=== PATIENT | female | born 1970 | race Caucasian/White ===

== ENCOUNTER → 2017-08-13 | Outpatient (CLI) | payer BC, SELFPAY | PROVIDERS: Visit Provider Physician Assistant | DX: Z98.84 Bariatric surgery status (principal); E03.9 Hypothyroidism, unspecified; I10 Essential (primary) hypertension | CPT/HCPCS: 36415; 80053; 80061; 80323; 82306; 82728; 82746; 83036; 83540; 83735; 83921; 83970; 84100; 84134; 84425; 84443; 84590; 85025; G0480 ==

== ENCOUNTER → 2017-11-29 07:50 | Outpatient (CLI) | payer BC, SELFPAY ==
--- NOTE | 2017-11-29 08:00 | US_ITS ---
US liver HISTORY: ITS.REASON: ATTN PORTAL VEIN, PORTAL VEIN THROMBOSIS ORDERING PHYSICIAN: Je Pedersen MD PATIENT AGE: 47 years COMPARISON: 06/30/2017 FINDINGS: PANCREAS:Unremarkable. No obvious mass or abnormal fluid collection. No ductal dilatation LIVER:Alondra turbulent flow within the portal vein as before and may be related to collateral vessels and/or recanalization of the portal vein. Is not significant change. Multiple septated hepatic cyst are once again noted measuring up to 3 cm in the right hepatic lobe. Previously noted 6 cm cyst in the mid aspect of the liver now measures approximately 3.7 cm. RIGHT KIDNEY:Unremarkable. Normal size and echogenicity. No hydronephrosis GALLBLADDER:Prior cholecystectomy. No ductal dilatation IMPRESSION: 1. Overall no change in the turbulent blood flow of the portal vein which may be due to recanalization. 2. Multiple hepatic cysts one of which is slightly smaller compared to the previous exam
[2017-11-29 09:21] LABS: Basophils % 0.7 % (0.1-2.0); Eosinophils # 0.1 K/mm3 (0.0-0.4); Eosinophils % 2.8 % (0.1-12.0); Hemoglobin 11.7 g/dL (12.2-16.2); Lymphocytes # 1.4 K/mm3 (0.7-4.5); Lymphocytes % 31.5 K/mm3 (10-50); Mean Corpuscular HGB Conc 30.9 g/dL (31.8-35.4); Mean Corpuscular Hemoglobin 25.3 pg (27.0-31.2); Mean Platelet Volume 10.1 fl (7.4-10.4); Monocytes # 0.3 K/mm3 (0.1-1.0); Monocytes % 6.3 % (1.7-9.3); Neutrophils # 2.6 K/mm3 (1.8-7.8); Neutrophils % 58.6 % (37.0-80.0); Platelet Count 176 K/mm3 (142-424); Red Blood Count 4.64 M/mm3 (4.20-5.40); Red Cell Distribution Width 14.4 % (11.5-17.5); White Blood Count 4.4 K/mm3 (4.8-10.8)
[2017-11-29 09:25] LABS: Hemoglobin A1C 5.4 % (0.0-7.0)
[2017-11-29 09:56] LABS: Alanine Aminotransferase 30 U/L (12-78); Albumin Level 3.8 gm/dL (3.4-5.0); Alkaline Phosphatase 214 U/L (46-116); Anion Gap 13.5 mEq/L (5-15); Aspartate Amino Transferase 28 U/L (15-37); Bilirubin,Total 0.5 mg/dL (0.2-1.0); Blood Urea Nitrogen 15 mg/dL (7-18); Calcium 8.9 mg/dL (8.5-10.1); Carbon Dioxide 28 mmol/L (21.0-32.0); Chloride 107 mmol/L (98-107); Chol/HDL Ratio 2.7 (1-3.5); Cholesterol 161 mg/dL (140-200); Creatinine,Serum 0.74 mg/dL (0.55-1.02); Estimated Glomerular Filt Rate 84 ml/min (>60); Ferritin 13 ng/mL (8-388); GFR (African American) 102 ML/MIN (>60); Glucose 91 mg/dL (74-106); HDL Cholesterol 59 mg/dL (29-89); Iron 32 ug/dl (28-170); LDL Cholesterol 84 mg/dL (0-130); Phosphorous 3.6 mg/dL (2.4-4.9); Potassium 3.5 mmoL/L (3.5-5.1); Sodium 145 mmol/L (136-145); Thyroid Stimulating Hormone 0.01 uIU/ml (0.358-3.740); Total Protein,Serum 7.8 gm/dL (6.4-8.2); Triglycerides 90 mg/dL (30-200); VLDL Cholesterol 18 mg/dL (0-40)
[2017-11-30 15:06] LABS: Vitamin D 25 Hydroxy 43.3 ng/mL (30.0-100.0)
[2017-12-13 13:36] LABS: Vitamin E Alpha Tocopherol 10.1 mg/L (7.0-25.1)
[2017-12-14 06:01] LABS: Vitamin A 29.2 ug/dL (33.1-100.0)
[2018-03-28 09:50] LABS: Folate 11.5 ng/mL (>3.0); Prealbumin 16 mg/dL (12-34); Vitamin B1 81.8 nmol/L (66.5-200.0)
[2018-03-28 09:51] LABS: Methylmalonic Acid 247 nmol/L (0-378)
== END ==
PROVIDERS: Family Provider Internal Medicine; PCP Internal Medicine; Visit Provider Internal Medicine Medical Oncology
DX: I81 Portal vein thrombosis (principal)
CPT/HCPCS: 36415; 76705; 80053; 80061; 82131; 82652; 82728; 82746; 83036; 83540; 84100; 84134; 84425; 84443; 84446; 84590; 85025

== ENCOUNTER → 2018-04-06 07:57 | Outpatient (CLI) | payer BC, SELFPAY ==
[2018-04-06 08:17] LABS: Eosinophils # 0.1 K/mm3 (0.0-0.4); Eosinophils % 3.2 % (0.1-12.0); Hematocrit 39.3 % (37.0-47.0); Hemoglobin 12.3 g/dL (12.2-16.2); Lymphocytes # 1.6 K/mm3 (0.7-4.5); Lymphocytes % 40.7 K/mm3 (10-50); Mean Corpuscular HGB Conc 31.3 g/dL (31.8-35.4); Mean Corpuscular Hemoglobin 24.7 pg (27.0-31.2); Mean Corpuscular Volume 78.8 fl (81-99); Mean Platelet Volume 10.1 fl (7.4-10.4); Monocytes # 0.2 K/mm3 (0.1-1.0); Monocytes % 5.9 % (1.7-9.3); Neutrophils % 49.2 % (37.0-80.0); Platelet Count 156 K/mm3 (142-424); Red Blood Count 4.98 M/mm3 (4.20-5.40); Red Cell Distribution Width 20.1 % (11.5-17.5)
[2018-04-06 09:14] LABS: Ferritin 26 ng/mL (8-388)
[2018-04-07 08:29] LABS: Iron 46 ug/dL (27-159); Iron Saturation 14 % (15-55); UIBC 280 ug/dL (131-425)
[2018-04-12 08:29] LABS: Methylmalonic Acid 479 nmol/L (0-378)
== END ==
PROVIDERS: Visit Provider Internal Medicine Medical Oncology
DX: I81 Portal vein thrombosis (principal); Z15.89 Genetic susceptibility to other disease; L57.8 Other skin changes due to chronic exposure to nonionizing radiation
CPT/HCPCS: 36415; 82131; 82728; 83540; 83550; 85025

== ENCOUNTER → 2018-05-23 07:51 | Outpatient (CLI) | payer BC, SELFPAY ==
--- NOTE | 2018-05-23 08:00 | US_ITS ---
US abdomen complete HISTORY: Follow-up portal hypertension, portal vein thrombosis ITS.REASON: PORTAL VEIN THROMBOSIS ORDERING PHYSICIAN: Je Pedersen MD PATIENT AGE: 47 years COMPARISON: None FINDINGS: PANCREAS:Unremarkable. No obvious mass or abnormal fluid collection. No ductal dilatation LIVER:There is a 19 x 18 mm complex cystic area in the right hepatic lobe not significant changed. In addition there is a 3.4 x 2.3 cm cyst in the right hepatic lobe and an additional complex 3 cm cyst in the right hepatic lobe. There is turbulent flow in the region of the portal vein which may be due to either recanalization of the portal vein versus collateral's similar compared to the previous exam... Common bile duct measures 5.5 mm. RIGHT KIDNEY:Unremarkable. Normal size and echogenicity. No hydronephrosis LEFT KIDNEY:Mild cortical scarring of the left kidney. No hydronephrosis GALLBLADDER: Prior cholecystectomy AORTA:No evidence of aneurysmal dilatation. SPLEEN:Borderline splenomegaly at 13 cm ASCITES:None demonstrated. IMPRESSION: 1. Turbulent flow within the portal region consistent with either recanalized portal vein or collaterals within the portal area. 2. No change in the cystic lesions of the right hepatic lobe
== END ==
PROVIDERS: Family Provider Internal Medicine; PCP Internal Medicine; Visit Provider Internal Medicine Medical Oncology
DX: I81 Portal vein thrombosis (principal)
CPT/HCPCS: 76700

== ENCOUNTER → 2018-06-21 08:24 | Outpatient (CLI) | payer BC, SELFPAY ==
--- NOTE | 2018-06-21 08:26 | MM_ITS ---
MM Dig screening mamm BI w/CAD ORDERING PHYSICIAN : Adam Sanders PATIENT AGE: 48 years GENDER: Female COMPARISON: Right breast February 2015, December 2014, INDICATION: ITS.REASON: SCREENING 48-year-old. No hormones. No new complaints. Previous needle biopsy right breast.. noncontributory family history TECHNIQUE: Standard CC and MLO images were obtained. R2 CAD reviewed. FINDINGS: Mild to moderate residual fibroglandular elements Today's air-contrast images extension weight previous fibroglandular elements RIGHT BREAST:I suspect right breast is stable but when the patient returns a would suggest including a spot CC and possibly rolled cc view of the area labeled A at the lateral retroareolar region,. I believe the area labeled Labeled B at the deep margin of the film was seen on previous studies but it should be included with a cc spot view is well. .. Metallic marker from the percutaneous biopsy noted LEFT BREAST:Superior left breast. Small area of density seen on MLO view is most likely a summation shadow. It labeled X this seems to dissipate on cc view. The area labeled Y at the inferior retroareolar region I believe is a stable feature accentuated by today's technique. However given these features are would suggest spot view of X and Y in the MLO projection. These areas are not clearly seen on the cc view but suggest cc spot view in the medial & lateral breast suggested to include areas noted on the film. IMPRESSION: There are areas bilaterally which I believe are minimally summation shadows but wouldbenefit from additional spot views to further evaluate. I believe Today's technique including higher contrast technique accentuates breast pattern & densities both breasts. BI-RADS Category: 0 Need Additional Imaging Evaluation RECOMMENDED FOLLOW-UP: IMM - IMMEDIATE FOLLOW-UP RECOMMENDED (A letter has been sent to the patient regarding results of the study.)
== END ==
PROVIDERS: PCP Internal Medicine; Visit Provider Internal Medicine
DX: Z12.31 Encounter for screening mammogram for malignant neoplasm of breast (principal)
CPT/HCPCS: 77067

== ENCOUNTER → 2018-07-21 12:48 | Outpatient (CLI) | payer BC, SELFPAY ==
--- NOTE | 2018-07-21 12:52 | MM_ITS ---
MM Dig mamm BI DX w/CAD INDICATION: Follow-up abnormal mammogram ORDERING PHYSICIAN: Adam Sanders PATIENT AGE: 48 years COMPARISON: 06/21/2018 TECHNIQUE: Spot compression views performed of both breasts along with straight ML views. FINDINGS: Right breast: There are scattered asymmetric densities some of which do appear to compress out. The density in the deep medial aspect of the right breast which was labeled B does appear to compress out. There is a 3 mm nodular density medial aspect right breast centrally. Asymmetric density present in the lateral right breast anteriorly (best A once again noted but may be due to overlapping fibroglandular tissue. There was a macro lobular area of asymmetric density in the inferior right breast on the MLO view spot view which are least partially compresses out. Ultrasound of the right breast is recommended. Left breast: There remains some moderate symmetry in the retroareolar region centrally and medially. Probably related to overlapping fibroglandular tissue. Ultrasound suggested. Bilateral breast ultrasound suggested but cannot be performed on the same day as the mammogram. IMPRESSION: Incomplete, additional images recommended. Recommend bilateral breast ultrasound BI-RADS Category: 0 Need Additional Imaging Evaluation RECOMMENDED FOLLOW-UP: IMM - IMMEDIATE FOLLOW-UP RECOMMENDED (A letter has been sent to the patient regarding results of the study.)
== END ==
PROVIDERS: PCP Internal Medicine; Visit Provider Internal Medicine
DX: R92.8 Other abnormal and inconclusive findings on diagnostic imaging of breast (principal)
CPT/HCPCS: 77066

== ENCOUNTER → 2018-07-27 09:42 | Outpatient (CLI) | payer BC, SELFPAY ==
--- NOTE | 2018-07-27 09:47 | US_ITS ---
US breast LT complete INDICATION: Follow-up abnormal mammogram ORDERING PHYSICIAN: Adam Sanders PATIENT AGE: 48 years COMPARISON: 07/21/2018 TECHNIQUE: Left breast ultrasound complete with axilla FINDINGS: There is a 3 x 2 mm cyst at 9:00. There are few small nodes in the axilla. At 11:00 there is a 9 x 5 mm hyperechoic focus which may be due to a lipoma. Mild ductal ectasia noted in the retroareolar region. No suspicious sonographic masses evident IMPRESSION: Probably benign findings. No convincing evidence of malignancy. Recommend 6 month mammographic and sonographic follow-up BI-RADS Category: 3 Probably Benign Finding Short Term Follow-up RECOMMENDED FOLLOW-UP: 6M - 6 MONTH FOLLOW-UP (A letter has been sent to the patient regarding results of the study.)
--- NOTE | 2018-07-27 09:47 | US_ITS ---
US breast RT complete INDICATION: Follow-up abnormal mammogram ORDERING PHYSICIAN: Adam Sanders PATIENT AGE: 48 years COMPARISON: 07/21/2018 TECHNIQUE: Right breast ultrasound with axilla FINDINGS: 3 mm cyst is present at 3:00. There is some mild ductal dilatation in the 7:00 region and 9:00 region. Ductal dilatation is also noted in the retroareolar area. There was some increased density in the retroareolar region on the mammogram which did appear to somewhat compress out and had a probably benign appearance and may correspond to some ductal ectasia IMPRESSION: Probably benign findings. There are a few small right breast cysts as well as ductal ectasia which may correspond to the mammographic abnormality. Recommend 6 month mammographic and sonographic follow-up BI-RADS Category: 3 Probably Benign Finding Short Term Follow-up RECOMMENDED FOLLOW-UP: 6M - 6 MONTH FOLLOW-UP (A letter has been sent to the patient regarding results of the study.)
== END ==
PROVIDERS: PCP Internal Medicine; Visit Provider Internal Medicine
DX: R92.8 Other abnormal and inconclusive findings on diagnostic imaging of breast (principal)
CPT/HCPCS: 76641

== ENCOUNTER → 2019-08-02 10:40 | Outpatient (CLI) | payer BC, SELFPAY ==
[2019-08-02 10:45] LABS: Microscopic, Urine URINE MICROSCOPIC (MICROSCOPIC)
[2019-08-02 10:53] LABS: Basophils % 0.7 % (0.1-2.0); Eosinophils # 0.1 K/mm3 (0.0-0.4); Eosinophils % 2.4 % (0.1-12.0); Lymphocytes # 1.6 K/mm3 (0.7-4.5); Lymphocytes % 27.6 % (10-50); Mean Corpuscular HGB Conc 30.4 g/dL (31.8-35.4); Mean Corpuscular Hemoglobin 22.5 pg (27.0-31.2); Mean Corpuscular Volume 73.9 fl (81-99); Mean Platelet Volume 8.9 fl (7.4-10.4); Monocytes # 0.4 K/mm3 (0.1-1.0); Monocytes % 7.3 % (1.7-9.3); Neutrophils # 3.5 K/mm3 (1.8-7.8); Platelet Count 166 K/mm3 (142-424); Red Cell Distribution Width 15.2 % (11.5-17.5); White Blood Count 5.6 K/mm3 (4.8-10.8)
[2019-08-02 10:56] LABS: Appearance,Urine CLEAR (Clear); Bilirubin,Urine Negative (Negative); Blood, Urine Negative (Negative); Color,Urine YELLOW (Yellow); Glucose,Urine (UA) Negative (Negative); Ketones,Urine Negative (Negative); Leukocyte Esterase,Urine 1+ (Negative); Nitrate,Urine Negative (Negative); PH,Urine 6.5 (5.0-8.5); Protein,Urine Negative (Negative); Specific Gravity, Urine 1.025 (1.005-1.030)
[2019-08-02 11:06] LABS: Hemoglobin 9.4 g/dL (12.2-16.2); Red Blood Count 4.19 M/mm3 (4.20-5.40)
[2019-08-02 11:21] LABS: Amorphous Sediment,Urine 1+ /lpf; Hyaline Casts,Urine Occasional #/lpf (0)
--- NOTE | 2019-08-02 13:28 | CT_ITS ---
PROCEDURE: CT ABDOMEN PELVIS W CON CLINICAL INDICATION: RLQ PAIN Right lower quadrant pain with nausea and vomiting and fever COMPARISON: ABDPELW CT ABD PELVIS W/ CONTRAST from 05/17/2017 TECHNIQUE: IV Contrast: 75ML OPTIRAY 350 Oral Contrast 20 mL Gastroview Axial images obtained with sagittal and coronal reformats. All CT scans at the facility use one or more dose reduction, viz: automated exposure control, ma/kV adjustment per patient size (including targeted exams where dose is matched to indication, i.e. head), or iterative reconstruction technique. FINDINGS: LOWER THORAX: There is a stable 5 mm nodule in the right middle lobe. The ABDOMEN & PELVIS: There are multiple hypodense lesions of the liver the largest in the right hepatic lobe posteriorly at 4 cm 2 cm. An 8 mm hypodensity is present in the left hepatic lobe laterally. A multilocular the cystic lesion is present in the inferior aspect of the right hepatic lobe. This lesion measures 3.6 cm previously measuring 6.8 cm. Some of the lesions are new and some of the older lesions are no longer apparent. Has the patient had interval hepatic surgery. There has been an interval cholecystectomy. There are multiple collateral vessels/varices in the portal region and peripancreatic area. There has been prior gastric surgery. Borderline splenomegaly at 13 cm. The no evidence of appendicitis. There is moderate to severe thickening of the left aspect of the transverse colon. Just superior to this region there is a small row of nodular densities.. The area of thickening may be related to neoplasm and the nodular densities could represent local lymph nodes. The area of thickening could also be due to severe area of colitis. It is however somewhat more focal than what 1 would expect for colitis. Prior hysterectomy. No pelvic mass or abnormal fluid collection. There is diverticulosis of the sigmoid colon. IMPRESSION: 1. No evidence of appendicitis 2. Focal moderate to severe thickening of the transverse colon just proximal to the sigmoid flexure. This area is suspicious for neoplasm. Focal colitis is also considered. Nodular densities superior to the colon at this area are present measuring up to 14 mm and may represent local enlarged lymph nodes 3. Varying sized complex cystic lesions within the liver. Appears that the patient has had partial hepatectomy. Please correlate with clinical history. This could account for some difference in appearance of the lesions. 4. Prominent varices/collateral vessels in the Ashley portal and peripancreatic region. 5. Prior gastric surgery Dictated by: Horacio Sotelo MD 08/02/2019 14:33 Electronically signed by Horacio Sotelo MD in [place] 08/02/2019 14:33
== END ==
LOC: LAB 10:42 → RAD 10:53
PROVIDERS: PCP Internal Medicine; Visit Provider Internal Medicine
DX: R10.31 Right lower quadrant pain (principal)
CPT/HCPCS: 36415; 74177; 81001; 85025; 87086; Q9967

== ENCOUNTER → 2019-09-06 08:23 | Outpatient (CLI) | payer BC, SELFPAY ==
[2019-09-06 09:26] LABS: Basophils % 0.8 % (0.1-2.0); Eosinophils # 0.1 K/mm3 (0.0-0.4); Hematocrit 31.1 % (37.0-47.0); Lymphocytes # 1.3 K/mm3 (0.7-4.5); Lymphocytes % 26.6 % (10-50); Mean Corpuscular HGB Conc 28.8 g/dL (31.8-35.4); Mean Corpuscular Hemoglobin 20.5 pg (27.0-31.2); Mean Corpuscular Volume 71.2 fl (81-99); Mean Platelet Volume 8.9 fl (7.4-10.4); Monocytes # 0.3 K/mm3 (0.1-1.0); Monocytes % 5.9 % (1.7-9.3); Neutrophils # 3.3 K/mm3 (1.8-7.8); Neutrophils % 64.6 % (37.0-80.0); Platelet Count 152 K/mm3 (142-424); Red Blood Count 4.37 M/mm3 (4.20-5.40); Red Cell Distribution Width 16.3 % (11.5-17.5)
[2019-09-06 10:58] LABS: Anion Gap 11.8 mEq/L (5-15); Blood Urea Nitrogen 16 mg/dL (7-18); Calcium 8.3 mg/dL (8.5-10.1); Carbon Dioxide 28 mmol/L (21.0-32.0); Chloride 106 mmol/L (98-107); Creatinine,Serum 0.69 mg/dL (0.55-1.02); Estimated Glomerular Filt Rate 90 ml/min (>60); GFR (African American) 109 ML/MIN (>60); Glucose 79 mg/dL (74-106); Potassium 3.8 mmoL/L (3.5-5.1); Sodium 142 mmol/L (136-145)
== END ==
PROVIDERS: Visit Provider Surgery
DX: Z01.818 Encounter for other preprocedural examination (principal); C18.9 Malignant neoplasm of colon, unspecified
CPT/HCPCS: 36415; 80048; 85025; 86850

== ENCOUNTER 2019-09-08 06:04 | Inpatient (IN) ==
--- NOTE | 2019-09-08 07:09 | Progress Note ---
[facility] Anesthesia Checklist - Patient Identification Patient Identification: Arm Band, Verbal (Name & ) - Structural Data Admitted From: Home Planned Operative Procedure/s: colon resection Consent for Planned Operative Procedure(s) Verified: Yes Verified Documents: History and Physical - NPO Status Verified Time NPO: 00:00 - Chart Verification Results Verified: CBC, BMP - Additional verifications Patient : No Anesthesia Reactions: No Hx Blood Transfusions: No Blood Transfusion Reaction: No Cephalosporin Allergy: No Previous Colonoscopy: Yes - Cardiovascular Assessment Heart Sounds: S1 & S2 Pulse Strength: Baseline Pulse Rhythm: Regular Peripheral Edema: No - Airway Assessment C-Spine Mobility Assessed: Yes TMJ Mobility Assessed: Yes Dentition: Good Dentition - Neurological Assessment Level of Consciousness: Awake, Alert, Appropriate Hx Seizures: No Numbness or tingling in extremities: No - Anesthesia Plan Anesthesia Risk discussed: Yes Anesthesia Plan: Verified ASA Class: II Anesthesia Type: General [facility] History I have reviewed the patient's past medical history: Yes Medical History: Reports:: Cancer (colon/thyroid), Deep Vein Thrombosis, Hypertension, Migraine, Valvular Heart Disease Denies:: Diabetes Mellitus Type 1, Diabetes Mellitus Type 2, Internal Pacemaker, MRSA, Seizures *Have you ever received a pneumonia vaccine?: No *Have you received a flu vaccine this season?: Yes Other Medical History: Reports: Arthritis, Hypothyroidism, Sinus Problems. Denies: Blood Transfusion Reaction Anesthesia experience/problems:: none Laterality Cases: Right: Breast Biopsy, Bilateral: Tonsillectomy, Other Other Surgeries: Yes: Bariatric Surgery, Cancer Surgery, Cholecystectomy, C- section, EGD, Hysterectomy-Total, Skin Cancer Excision, Thyroidectomy, Other. No: Pacemaker Amputation: No Fractures: No - *Social History Educational Level: Completed College Smoking Status: Never smoker Alcohol Intake: never Substance Use Type: denies use *Occupational Status:: employed Housing: house Household Members: spouse, children *Travel in the last 8 weeks: None Family Hx:: Cancer, Diabetes, Heart Attack, Hypertension, Thyroid Disorder
--- NOTE | 2019-09-08 10:45 | Progress Note ---
[facility] Anesthesia Record Part I Intake, IV Amount: 1,500 Estimated blood loss (mL): 100 Urine output (mL): 60 Blood Products used (#): none Blood Pressure: 137/92 SaO2: 97 Pulse Rate: 101 Respiratory Rate: 20 Temperature: 97.6 F Patient is:: Drowsy, Stable Stable to PACU at:: 10:38
--- NOTE | 2019-09-08 10:51 | Operative Note ---
Date of procedure: 09/08/19 Pre-op Diagnosis:: Colon cancer Post-op Diagnosis:: Same Procedure performed:: Left colon resection with mobilization of splenic flexure and primary anastomosis Surgeon:: Dilan Canela MD Metal Patternmaker(s):: Chau Morocho MD BUSINESS ADMINISTRATOR:: Reginaldo Ramirezty Anesthesia: GETA Estimated blood loss (mL): 100 Clinical Note:: Patient presents for colon resection. She is a pleasant 49 year old. She underwent colonoscopy recently revealing distal transverse colon colon cancer. She is a history of about 1 year of several episodes of some bloody stools. She does have a history of prior gastric sleeve and had subsequent portal vein thrombosis and is on chronic Eliquis. She has had some change in bowel habits over the past several months as well in which she has several days of obstipation then has painful bowel movements secondary to constipation. She had some right lower quadrant pain. She underwent a CT scan of the abdomen and pelvis last month which revealed some findings of thickening of the distal transverse colon concerning for neoplasm versus focal colitis. She also had some possible enlarged lymph nodes as well as findings of prominent periportal and perigastric varices. She was sent for surgical consultation for colonoscopy. She underwent colonoscopy which revealed circumferential lesion grossly consistent with colon cancer. Colonoscope was ultimately able to be advanced beyond this and into the cecum. Biopsies were obtained which returned as consistent with adenocarcinoma. She had several other polyps removed most of which revealed merely hyperplastic polyps but she did have a tubular adenoma in the rectum. Operative findings:: She had a large circumferential lesion in the transverse colon. Operative note:: Patient was taken to the operating room. Please note that the day before the procedure she underwent a mechanical and antibiotic bowel preparation. She had been maintained on therapeutic low molecular weight heparin due to her history of portal vein thrombosis. In the operating room she was placed in a supine position. General anesthesia was induced via endotracheal tube. Lezama catheter was placed. Abdomen was prepped and draped in the standard surgical fashion. Upper midline skin incision was made and dissection was carried down through subcutaneous tissues and fascia using electrocautery. Peritoneum was entered carefully. Exposure was achieved. There was found to be a very large firm mass in the transverse colon. Colon was mobilized dividing the white line of Toldt in the left colon. Splenic flexure was mobilized by use of the Enseal device. Some more prominent tissue and vessels were clamped divided and ligated with ties. Colon was divided a generous distance proximal to the palpable tumor with a SHERIF-75 stapling device. In the descending colon colon was divided as well with a SHERIF 75 stapling device. Generous mesenteric resection was performed dividing the mesentery with the Enseal device with vessels clamped and ligated with 0 Surgilon ties. Large vessels were doubly ligated. Please note that the lesser omentum was divided with the Enseal device. Lymph: Was then passed off as a specimen. Upon inspection of the specimen it appeared as though the proximal margin was rather borderline distance. Therefore additional 5 or 6 cm of colon proximally was excised using a SHERIF-75 type stapling device. This allowed for easily greater than 10 cm proximal margin. A tension-free end-to-end 2 layer anastomosis was then performed running 3-0 Vicryl full- thickness suture with outer layer of interrupted 3 oh Surgilon seromuscular sutures. Anastomosis appeared patent and intact. The splenic flexure region was thoroughly inspected for hemostasis which appeared to be adequate. The mesenteric defect at the anastomosis was closed with a running 2-0 Vicryl suture. Enteric contents were returned to the normal anatomic fashion. Inspection of the liver was somewhat difficult due to her hepatic cysts and was difficult to discern if there are any small metastases but none obviously were noted. Peritoneal cavity was thoroughly irrigated and aspirated until clear. Enteric contents were returned to normal anatomic position. Fascia was closed with a running #2 Novafil x2. Subcutaneous tissues were irrigated. Skin was closed with skin herlinda. Clean dry sterile dressing was applied. Condition: stable Disposition: PACU Specimens:: Left colon Extended proximal margin Complications:: None immediately apparent
--- NOTE | 2019-09-08 11:51 | Progress Note ---
[facility] Anesthesia Record Part II Discharge Time: 11:18 Destination: Surgical Day Care (OP Surgery) PACU nurse assessment reviewed?: Yes Patient Condition:: Good Anesthesia Complications:: None Swallowing reflex intact?: Yes Cyanosis?: No Blood Pressure: 146/93 Pulse Rate: 98 Temperature: 97.9 F Mental Status: Alert & Oriented Pain level:: 1 Nausea and/or vomitting:: None Intake, IV Amount: 0
--- NOTE | 2019-09-08 15:34 | Pharmacy Consult Notes ---
[facility] Pharmacy VTE Monitoring - Patient Demographics Admission date: 09/08/19 Report Date: 09/08/19 Time: 15:34 Allergies/Adverse Reactions: Patient Allergies hydromorphone [From Dilaudid] Allergy (Unknown, Verified 09/08/19 06:22) Height: 1.8 m Weight: 83.659 kg - VTE Risk Was VTE Risk Assessment Performed: Yes VTE Score: 1 VTE Risk Level: Very Low Risk - Prophylaxis VTE Prophylaxis Ordered?: Yes Types of VTE Prophylaxis: Pharmacological Pharmacologic Type: Enoxaparin
[2019-09-09 06:20] LABS: Basophils % 0.2 % (0.1-2.0); Eosinophils # 0.1 K/mm3 (0.0-0.4); Eosinophils % 0.6 % (0.1-12.0); Lymphocytes % 11.7 % (10-50); Mean Corpuscular HGB Conc 28.3 g/dL (31.8-35.4); Mean Corpuscular Volume 71.6 fl (81-99); Mean Platelet Volume 8.6 fl (7.4-10.4); Monocytes # 0.5 K/mm3 (0.1-1.0); Monocytes % 5.2 % (1.7-9.3); Neutrophils # 7.1 K/mm3 (1.8-7.8); Neutrophils % 82.4 % (37.0-80.0); Platelet Count 143 K/mm3 (142-424); Red Blood Count 3.84 M/mm3 (4.20-5.40); Red Cell Distribution Width 16.6 % (11.5-17.5); White Blood Count 8.6 K/mm3 (4.8-10.8)
[2019-09-09 06:21] LABS: Hematocrit 27.5 % (37.0-47.0); Hemoglobin 7.8 g/dL (12.2-16.2)
[2019-09-09 06:49] LABS: Anion Gap 9.2 mEq/L (5-15); Calcium 7.7 mg/dL (8.5-10.1)
--- NOTE | 2019-09-09 08:57 | Progress Note ---
Subjective Narrative: Patient has had some appreciable abdominal pain overnight which required some alteration of the morphine AUDIT OFFICER dosing regimen. She denies any nausea. Hemoglobin this morning is 7.8. Baseline hemoglobin of 9.0. Exam Vital signs and Labs for Last 24 Hours: Temp Pulse Resp BP Pulse Ox 97.8 F 91 H 16 117/73 92 L 09/09/19 07:18 09/09/19 06:00 09/09/19 04:00 09/09/19 06:00 09/09/19 06:00 Laboratory Results - last 24 hr 09/08/19 07:30: Urine Color Yellow, Urine Appearance Clear, Urine pH 5.0, Ur Specific [place] >= 1.030, Urine Protein Negative, Urine Glucose (UA) Negative, Urine Ketones Trace, Urine Blood Negative, Urine Nitrate Positive, Urine Bilirubin Negative, Urine Urobilinogen 0.2, Ur Leukocyte Esterase Trace, Urine RBC None, Urine WBC 3-5, Ur Squamous Epith Cells 3-5, Urine Bacteria 1+ 09/09/19 05:35: WBC 8.6 D, RBC 3.84 L, Hgb 7.8 L*, Hct 27.5 L, MCV 71.6 L, MCH 20.3 L, MCHC 28.3 L, RDW 16.6, Plt Count 143, MPV 8.6, Neut % (Auto) 82.4 H, Lymph % (Auto) 11.7, Coleman % (Auto) 5.2, Eos % (Auto) 0.6, Baso % (Auto) 0.2, Neut # (Auto) 7.1, Lymph # (Auto) 1.0, Coleman # (Auto) 0.5, Eos # (Auto) 0.1, Baso # (Auto) 0.0 09/09/19 05:35: Sodium 140, Potassium 4.2, Chloride 106, Carbon Dioxide 29, Ani on Gap 9.2, BUN 11 D, Creatinine 0.69, Estimated Creat Clear 135, Estimated GFR 90, Est GFR ( Amer) 109, Glucose 105, Calcium 7.7 L I & O for Last 24 hours: Intake & Output 09/06/19 09/07/19 09/08/19 09/09/19 11:59 11:59 11:59 11:59 Intake Total 1500 / 1500 2846 / 2846 Output Total 825 / 825 Balance 1500 / 1500 2020 Weight 185 lb 184 lb 7 oz 190 lb 8 oz Narrative: She is in no acute distress. Appears more comfortable than yesterday evening. Abdominal incision is dressed. Progress Note: A&P Assessment and Plan for All Diagnoses:: Continue n.p.o. except ice chips. Patient may have chewing gum which is en couraged. May add low-dose Toradol briefly due to her abdominal pain. Monitor hemoglobin and hematocrit. Hopefully will not require transfusion.
[2019-09-10 05:57] LABS: Basophils % 0.5 % (0.1-2.0); Eosinophils # 0.2 K/mm3 (0.0-0.4); Eosinophils % 3.2 % (0.1-12.0); Lymphocytes # 0.7 K/mm3 (0.7-4.5); Lymphocytes % 13.8 % (10-50); Mean Corpuscular HGB Conc 28.3 g/dL (31.8-35.4); Mean Corpuscular Volume 71.5 fl (81-99); Mean Platelet Volume 10.5 fl (7.4-10.4); Monocytes # 0.3 K/mm3 (0.1-1.0); Monocytes % 5.8 % (1.7-9.3); Neutrophils # 4.1 K/mm3 (1.8-7.8); Neutrophils % 76.7 % (37.0-80.0); Platelet Count 100 K/mm3 (142-424); Red Blood Count 3.16 M/mm3 (4.20-5.40); Red Cell Distribution Width 16.6 % (11.5-17.5); White Blood Count 5.3 K/mm3 (4.8-10.8)
[2019-09-10 05:58] LABS: Hematocrit 22.6 % (37.0-47.0); Hemoglobin 6.4 g/dL (12.2-16.2)
[2019-09-10 06:20] LABS: Anion Gap 14.1 mEq/L (5-15)
--- NOTE | 2019-09-10 08:54 | Progress Note ---
Subjective Narrative: Patient without complaints other than headache. Started Tylenol. No nausea. Pain much improved. Hgb 6.4 this morning. Exam Vital signs and Labs for Last 24 Hours: Temp Pulse Resp BP Pulse Ox 99.0 F 69 15 102/58 L 98 09/10/19 08:15 09/10/19 08:15 09/10/19 08:15 09/10/19 08:15 09/10/19 08:15 Laboratory Results - last 24 hr 09/10/19 05:45: WBC 5.3 D, RBC 3.16 L, Hgb 6.4 L*, Hct 22.6 L*, MCV 71.5 L, MCH 20.2 L, MCHC 28.3 L, RDW 16.6, Plt Count 100 L D, MPV 10.5 H, Neut % (Auto) 76.7, Lymph % (Auto) 13.8, Valley % (Auto) 5.8, Eos % (Auto) 3.2, Baso % (Auto) 0.5, Neut # (Auto) 4.1, Lymph # (Auto) 0.7, Valley # (Auto) 0.3, Eos # (Auto) 0.2, Baso # (Auto) 0.0 09/10/19 05:45: Sodium 144, Potassium 4.1, Chloride 103, Carbon Dioxide 31, Anion Gap 14.1, BUN 11, Creatinine 0.52 L D, Estimated Creat Clear 180, Estimated GFR 125, Est GFR ( Amer) 152 D, Glucose 88, Calcium 7.0 L 09/10/19 05:45: Blood Type O Positive, Antibody Screen Negative, Crossmatch (AHG) See Detail I & O for Last 24 hours: Intake & Output 09/07/19 09/08/19 09/09/19 09/10/19 11:59 11:59 11:59 11:59 Intake Total 1500 / 1500 2846 / 2846 2816 / 2816 Output Total 1075 / 1075 250 / 250 Balance 1500 / 1500 1771 / 1771 2566 / 2566 Weight 185 lb 184 lb 7 oz 190 lb 8 oz 192 lb 5 oz Narrative: No acute distress. Abdomen soft. Dressing intact. Some bowel sounds. Progress Note: A&P Assessment and Plan for All Diagnoses:: Restarted home medications. Transfuse today. Monitor HH. May have some sips of clears.
[2019-09-10 15:42] LABS: Hemoglobin 8.1 g/dL (12.2-16.2)
[2019-09-11 06:17] LABS: Basophils % 0.4 % (0.1-2.0); Eosinophils # 0.2 K/mm3 (0.0-0.4); Eosinophils % 5.6 % (0.1-12.0); Hematocrit 26.7 % (37.0-47.0); Lymphocytes # 1.1 K/mm3 (0.7-4.5); Lymphocytes % 30.2 % (10-50); Mean Corpuscular HGB Conc 29.3 g/dL (31.8-35.4); Mean Corpuscular Volume 72.7 fl (81-99); Mean Platelet Volume 8.5 fl (7.4-10.4); Monocytes # 0.2 K/mm3 (0.1-1.0); Monocytes % 6.4 % (1.7-9.3); Neutrophils % 57.3 % (37.0-80.0); Platelet Count 123 K/mm3 (142-424); Red Blood Count 3.68 M/mm3 (4.20-5.40); White Blood Count 3.5 K/mm3 (4.8-10.8)
[2019-09-11 06:41] LABS: Hemoglobin 7.8 g/dL (12.2-16.2)
--- NOTE | 2019-09-11 08:11 | Progress Note ---
Subjective Patient reports: feels better Narrative: No nausea. Active bowel sounds. Pain improved. Appropriate response to transfusion with hgb 8.1, essentially stable at 7.8 this morning. Exam Vital signs and Labs for Last 24 Hours: Temp Pulse Resp BP Pulse Ox 98.0 F 57 L 17 126/72 92 L 09/11/19 06:00 09/11/19 06:00 09/11/19 06:00 09/11/19 06:00 09/11/19 06:00 Laboratory Results - last 24 hr 09/10/19 05:45: Blood Type O Positive, Antibody Screen Negative, Crossmatch (AHG) See Detail 09/10/19 15:30: Hgb 8.1 L D, Hct 27.0 L 09/11/19 05:19: WBC 3.5 L D, RBC 3.68 L, Hgb 7.8 L*, Hct 26.7 L, MCV 72.7 L, MCH 21.3 L, MCHC 29.3 L, RDW 17.0, Plt Count 123 L, MPV 8.5, Neut % (Auto) 57.3, Lymph % (Auto) 30.2, Bartholomew % (Auto) 6.4, Eos % (Auto) 5.6, Baso % (Auto) 0.4, Neut # (Auto) 2.0, Lymph # (Auto) 1.1, Bartholomew # (Auto) 0.2, Eos # (Auto) 0.2, Baso # (Auto) 0.0 I & O for Last 24 hours: Intake & Output 09/08/19 09/09/19 09/10/19 09/11/19 11:59 11:59 11:59 11:59 Intake Total 1500 / 1500 2846 / 2846 3066 / 3066 2415 / 2415 Output Total 1075 / 1075 250 / 250 3000 / 3000 Balance 1500 / 1500 1771 / 1771 2816 / 2816 -585 / -585 Weight 184 lb 7 oz 190 lb 8 oz 192 lb 5 oz 192 lb 4.983 oz - *Routine Abdominal Exam Present: soft Progress Note: A&P Assessment and Plan for All Diagnoses:: DC LEAD RELAY TESTER, start oral pain meds. Clear liquid diet. Nutrition and rehab consults DC Toradol Decrease IV fluids. Follow HH
--- NOTE | 2019-09-12 07:11 | Progress Note ---
Subjective Narrative: Patient is doing extremely well. She has minimal incisional pain at this time. She is tolerating clear liquids without difficulty and has had multiple bowel movements. Exam Vital signs and Labs for Last 24 Hours: Temp Pulse Resp BP Pulse Ox 97.9 F 66 16 129/77 97 09/12/19 04:00 09/12/19 04:00 09/12/19 04:00 09/12/19 04:00 09/12/19 04:00 I & O for Last 24 hours: Intake & Output 09/09/19 09/10/19 09/11/19 09/12/19 11:59 11:59 11:59 11:59 Intake Total 2846 / 2846 3066 / 3066 2415 / 2415 360 / 360 Output Total 1075 / 1075 250 / 250 3000 / 3000 250 / 250 Balance 1771 / 1771 2816 / 2816 -585 / -585 110 / 110 Weight 190 lb 8 oz 192 lb 5 oz 192 lb 4.983 oz 192 lb 4.983 oz Narrative: Her abdomen is soft and her incision is clean. Progress Note: A&P Assessment and Plan for All Diagnoses:: I will go ahead and advance her to full liquid diet. Remove IV. Possible discharge later today.
--- NOTE | 2019-09-12 12:57 | Discharge Summary ---
General - General Admission date:: 09/08/19 Discharge date: 09/12/19 HPI HPI: Patient was admitted for colon resection. She is a pleasant 49 year old. She underwent colonoscopy recently revealing distal transverse colon colon cancer. She is a history of about 1 year of several episodes of some bloody stools. She does have a history of prior gastric sleeve and had subsequent portal vein thrombosis and is on chronic Eliquis. She has had some change in bowel habits over the past several months as well in which she has several days of obstipation then has painful bowel movements secondary to constipation. She had some right lower quadrant pain. She underwent a CT scan of the abdomen and pelvis last month which revealed some findings of thickening of the distal transverse colon concerning for neoplasm versus focal colitis. She also had s ome possible enlarged lymph nodes as well as findings of prominent periportal and perigastric varices. She was sent for surgical consultation for colonoscopy. She underwent colonoscopy which revealed circumferential lesion grossly consistent with colon cancer. Colonoscope was ultimately able to be advanced beyond this and into the cecum. Biopsies were obtained which returned as consistent with adenocarcinoma. She had several other polyps removed most of which revealed merely hyperplastic polyps but she did have a tubular adenoma in the rectum. Hospital Course Hospital Course: Patient was admitted on 09/08/2019 at which time she was taken to the operating room. She underwent laparotomy with left colon resection and mobilization of splenic flexure with primary end-to-end anastomosis. Please see operative note for complete details. She was admitted to stepdown unit initially for postoperative care and recovery. She did have some significant abdominal discomfort and mild nausea the afternoon after surgery. She required some increase in the morphine [employer]SE [employer]OVER. She was given perioperative Invanz which was discontinued on postoperative day #1. She did not have nasogastric tube in place. She had Lezama catheter removed on postoperative day #1 normal is able to void without difficulty. Please note that her baseline hemoglobin was 9 and by postoperative day #2 it had diminished. She required transfusion of 2 units of packed red blood cells with good response and hemoglobin remained relatively stable following that. She was given some sips of clears on postoperative day #2 which she tolerated without difficulty. This was advanced to clear liquid diet on postoperative day #3 and she subsequently had multiple bowel movements. She was ambulating without difficulty and doing quite well. On the morning of postop day #4 her diet was advanced to full liquids which she tolerated without any difficulty and continued to have bowel movements. Arrangements were made for discharge home at this time with close follow-up in the office. Objective Vital signs: Temp Pulse Resp BP Pulse Ox 98.2 F 61 16 127/82 100 09/12/19 07:50 09/12/19 07:50 09/12/19 07:50 09/12/19 07:50 09/12/19 07:54 Discharge Plan - Patient Discharge Instructions ACTIVITY: No heavy lifting DIET: other Additional Instructions: [place] diet Patient Instructions: Colon Cancer, Colon Polyps, DI for Surgical Site Infection - Follow up Plan Follow up with: Dilan Canela MD [Staff Physician] - 09/15/19 Disposition: Home, Self-Group Home Medications: Home Medications Medication Instructions Recorded Confirmed Type apixaban 5 mg tablet 5 mg PO BID 08/27/17 09/08/19 History levothyroxine 175 mcg tablet 175 mcg PO DAILY 08/27/17 09/08/19 History paroxetine HCl 10 mg tablet 10 mg PO DAILY 03/16/19 09/08/19 History Enoxaparin Sodium [Lovenox 90 mg SQ BID 08/22/19 09/08/19 History 100mg/mL syringe] Hydrocod/Acet 5/325 mg [[place] 1 - 2 tab PO Q6HP PRN #21 tab 09/12/19 Rx 5/325mg tablet] Prescriptions/Medication Reconciliation: New Hydrocod/Acet 5/325 mg [[place] 5/325mg tablet] 1 - 2 tab PO Q6HP PRN #21 tab PRN Reason: Moderate Pain Continued levothyroxine 175 mcg tablet 175 mcg PO DAILY paroxetine HCl 10 mg tablet 10 mg PO DAILY apixaban 5 mg tablet 5 mg PO BID Enoxaparin Sodium [Lovenox 100mg/mL syringe] 90 mg SQ BID - Problem Reconciliation Problems Reviewed?: Yes
== END 2019-09-12 13:56 | disposition home or self-care (01) | DRG 330 ==
LOC: 2ND 06:04 → OR 06:04 → OBSVTOIN 06:19 → 2ND 11:23
PROVIDERS: ADMIT Surgery; ATTEND Surgery
CPT/HCPCS: 36415; 80048; 81001; 85014; 85018; 85025; 86850; 96374; 97161; J0131; J1335; J2405; P9016

== ENCOUNTER → 2020-06-03 11:44 | Outpatient (CLI) | payer BC, SELFPAY ==
[2020-06-03 14:48] LABS: Coronavirus 19 IgG Antibody Negative (Negative); Coronavirus 19 IgM Antibody Negative (Negative)
== END ==
PROVIDERS: Visit Provider Surgery
DX: Z01.89 Encounter for other specified special examinations (principal); Z12.11 Encounter for screening for malignant neoplasm of colon
CPT/HCPCS: 36415; 86328

== ENCOUNTER 2020-06-04 06:14 | Day surgery (SDC) | payer BC, SELFPAY ==
[2020-05-30 16:26] VITALS: BMI 29.5
[2020-06-04] VITALS (7 sets, daily range): BP systolic 96–141; BP diastolic 58–69; PULSE 53–65; RESP 16–18; TEMP 36.1–36.9; O2SAT 95–99
--- NOTE | 2020-06-04 06:57 | P.PN_ITS ---
[facility] Anesthesia Checklist - Patient Identification Patient Identification: Arm Band, Verbal (Name & ) - Structural Data Admitted From: Home Planned Operative Procedure/s: colonoscopy Consent for Planned Operative Procedure(s) Verified: Yes Verified Documents: History and Physical - NPO Status Verified Time NPO: 00:00 - Chart Verification Results Verified: CBC, BMP - Additional verifications Patient : No Anesthesia Reactions: No Hx Blood Transfusions: No Blood Transfusion Reaction: No Cephalosporin Allergy: No Previous Colonoscopy: Yes - Cardiovascular Assessment Heart Sounds: S1 & S2 Pulse Strength: Baseline Pulse Rhythm: Regular Peripheral Edema: No - Airway Assessment C-Spine Mobility Assessed: Yes TMJ Mobility Assessed: Yes Dentition: Good Dentition - Neurological Assessment Level of Consciousness: Awake, Alert Hx Seizures: No Numbness or tingling in extremities: No - Anesthesia Plan Anesthesia Risk discussed: Yes Anesthesia Plan: Verified ASA Class: II Anesthesia Type: MAC [facility] History I have reviewed the patient's past medical history: Yes Medical History: Reports:: Cancer (colon cancer), Deep Vein Thrombosis, Hypertension, Migraine, Valvular Heart Disease (MVP) Denies:: Diabetes Mellitus Type 1, Diabetes Mellitus Type 2, Internal Pacemaker, MRSA, Seizures *Have you ever received a pneumonia vaccine?: No *Have you received a flu vaccine this season?: Yes Other Medical History: Reports: Arthritis, Hypothyroidism, Sinus Problems. Denies: Blood Transfusion Reaction Anesthesia experience/problems:: none Laterality Cases: Right: Breast Biopsy, Bilateral: Tonsillectomy, Other Other Surgeries: Yes: Bariatric Surgery, Cancer Surgery, Cholecystectomy, Colonoscopy, Colon Resection, , EGD, Hysterectomy-Total, Skin Cancer Excision, Thyroidectomy, Other. No: Pacemaker Amputation: No Fractures: No - *Social History Smoking Status: Never smoker Alcohol Intake: never Substance Use Type: denies use *Occupational Status:: employed Housing: house Household Members: spouse *Travel in the last 8 weeks: None Family Hx:: Cancer, Diabetes, Heart Attack, Hypertension, Thyroid Disorder
--- NOTE | 2020-06-04 07:51 | P.PCN_ITS ---
- Procedure: Date: 06/04/20 Patient Date of :: 1970 Procedure Performed:: Total colonoscopy to terminal ileum with biopsies Indications:: Patient presents for colonoscopy. 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 She is undergoing chemotherapy regimen with Dr. Pedersen in [place]. She did have a right subclavian port placed by Dr. Marck Begum. She did undergo CT scan of the chest abdomen pelvis in [place]. There was noted to be an area of some thickening of the sigmoid colon. Therefore plan was made to expedite her colonoscopy. Performing Provider:: Dilan Canela MD Referring Provider:: MD Je Gallardo MD Sedation:: MAC sedation Procedure:: Patient was taken to endoscopy procedure room. She was positioned in lateral decubitus position. Adequate intravenous sedation was achieved with anesthesia titration of propofol. Digital examination was performed which was unremarkable. Variable stiffness Olympus colonoscope was inserted via the anus. It was advanced to the cecum without difficulty. Colonic preparation was good. Ileocecal valve and appendiceal orifice were clearly identified. Colonoscope was slowly withdrawn through the colon with careful surveillance. Anastomosis was encountered at approximately 50 to 55 cm from the anal verge. It was patent with only minimal narrowing. There is mild inflammation and biopsies were obtained using cold biopsy forceps. At the rectosigmoid region there is some minor mucosal irregularity and a couple of biopsies were obtained. This appeared to be inconsequential. Within the rectum there was a single hyperplastic appearing polyp which was removed with cold biopsy forceps. Retroflexion within the rectum revealed nonpathologic internal hemorrhoids. Colonoscope was withdrawn. Findings:: Patent anastomosis with minimal luminal narrowing at approximately 50 to 55 cm Minor mucosal irregularity at the rectosigmoid, inconsequential, biopsies obtained Hyperplastic appearing rectal polyp Recommendations:: Follow-up on histopathology. Likely repeat colonoscopy in a year or so. Ending on CT scan is likely postoperative change in her anastomosis Complications:: None immediately apparent Estimated blood obtained (mL): 5
== END 2020-06-04 08:35 | disposition home or self-care (01) ==
LOC: OUTP 06:16
PROVIDERS: PCP Internal Medicine; Visit Provider Surgery
PROC: 0DJD8ZZ Inspection of Lower Intestinal Tract, Via Natural or Artificial Opening Endoscopic (ICD-10-PCS; CPT 45380; principal; 2020-06-04 07:30)
DX: Z12.11 Encounter for screening for malignant neoplasm of colon (principal); K63.89 Other specified diseases of intestine; K62.1 Rectal polyp; Z85.030 Personal history of malignant carcinoid tumor of large intestine; Z90.49 Acquired absence of other specified parts of digestive tract; I10 Essential (primary) hypertension; I82.409 Acute embolism and thrombosis of unspecified deep veins of unspecified lower extremity; G43.909 Migraine, unspecified, not intractable, without status migrainosus; I34.1 Nonrheumatic mitral (valve) prolapse; M19.90 Unspecified osteoarthritis, unspecified site; E03.9 Hypothyroidism, unspecified; Z90.89 Acquired absence of other organs
CPT/HCPCS: 45380; J1642

== ENCOUNTER 2020-06-18 08:57 | Emergency (ER) | payer BC, SELFPAY ==
[2020-06-18 09:12] VITALS: BP 129/75; PULSE 67; RESP 18; TEMP 37.1; O2SAT 100; BMI 29.5
--- NOTE | 2020-06-18 09:22 | HMH.EDUTC ---
[facility] Disposition Clinical Impression: Encounter for laboratory testing for COVID-19 virus Disposition: Home, Self-Care Condition on Discharge: Good Instructions: Preventing the Spread of Coronavirus Discharge Instructions Additional Instructions: *Monitor Temp, Over the counter Motrin or Tylenol as directed/as needed Tylenol every 4 hours and Motrin every 6 hours (as long as your family doctor has told you that you can take it) for fever or pain. and straight to ER if unable to lower temp less than 101.0 after medication given *Warm salt water gargles may help to soothe the throat *Throat Lozenges *Warm fluids like tea with honey may help to soothe the throat *Sleep elevated *Humidifier/Vaporizer Follow up IMMEDIATELY for new or worsening symptoms or no Noticeable improvement over the next 48-72 hours. 911 for difficulty breathing or swallowing You was tested for today for COVID19 your test result should be back later this evening, you may call back later this evening to see if your test results are back and the result You was given a handout with instructions for Self Quarantine and Self isolation for while you wait on test results and what to do if they are positive Referrals: Adam Sanders [Primary Care Provider] - As needed Forms: Work/School Release Time of Disposition: 09:34 Medical Decision Making - Frank Inquiry Pt receiving controlled substance: No Frank was queried for this patient: No Vital Signs: 06/18/20 09:12 Temperature 98.7 F Temperature Source Oral Pulse Rate [Radial] 67 Respiratory Rate 18 Blood Pressure [Right Arm] 129/75 Blood Pressure Mean [Right Arm] 93 Blood Pressure Source [Right Arm] Automatic Cuff Blood Pressure Position [Right Arm] Sitting 02 Sat by Pulse Oximetry 100 Orders (Tests/Meds): ORDERS Category Date Time Status Covid-19 Nasal PCR ([facility]) Routine Lab 06/18/20 09:16 Ordered [facility] HPI - General Stated complaint: covid exposure Time Seen by Provider: 06/18/20 09:22 Mode of Arrival: Ambulatory Source of Information: Patient Limitations: No Limitations Description of Symptoms (Recalled from Triage Doc. by RN): possible covid exposure HEENT Symptoms (Recalled from RN notes): No Resp Symptoms (Recalled from RN notes): No Skin Symptoms (Recalled from RN notes): No MS Symptoms (Recalled from RN notes): No Functional Status (Recalled from RN notes): wnl - History of Present Illness Provider Complaint: Patient state that she thinks she may have been exposed to COVID and wanted to get tested to make sure that she didnt have it Denies any symptoms - Related Data Home Medications Medication Instructions Recorded Confirmed apixaban 5 mg tablet 5 mg PO BID 08/27/17 06/04/20 levothyroxine 175 mcg tablet 175 mcg PO DAILY 08/27/17 05/30/20 paroxetine HCl 10 mg tablet 10 mg PO DAILY 03/16/19 05/30/20 Enoxaparin Sodium [Lovenox 90 mg SQ BID 08/22/19 05/30/20 100mg/mL syringe] magnesium oxide 250 mg PO BID 12/04/19 05/30/20 doxycycline monohydrate 50 mg 50 mg PO DAILY 03/22/20 05/30/20 capsule gabapentin 300 mg capsule 300 mg PO DAILY 03/22/20 05/30/20 omeprazole 20 mg capsule,delayed 20 mg PO DAILY 03/22/20 05/30/20 release Sodium, Potassium,Mag Sulfates See Rx Instructions PO .COMPLEX 05/30/20 05/30/20 [Suprep Bowel Prep Kit] Allergies Allergy/AdvReac Type Severity Reaction Status Date / Time hydromorphone [From Dilaudid] Allergy Unknown Verified 06/04/20 06:41 - Worker's Comp Is this a Worker's Comp case?: No [facility] History - Hepatitis A Screen Drug use history?: No High risk sexual behaviors?: No History of sexually transmitted infection?: No Currently employed?: No Childcare worker?: No Do you have indoor plumbing?: Yes Do you have electricity?: Yes Attestation statement:: This patient has been screened for Hepatitis A risk factors. I have reviewed the patient's past medical history: Yes Medical History: Reports:: Cancer (colon
[2020-06-18 09:40] VITALS: BP 129/75; PULSE 67; RESP 18; TEMP 37.1; O2SAT 100
[2020-06-19 09:00] LABS: Covid-19 Nasal PCR Sendout Lex NOT DETECTED
== END 2020-06-18 09:41 | disposition home or self-care (01) ==
PROVIDERS: Emergency Provider Nurse Practitioner; PCP Internal Medicine
DX: Z20.828 Contact with and (suspected) exposure to other viral communicable diseases (principal)
CPT/HCPCS: 99201; U0004

== ENCOUNTER → 2021-02-18 11:20 | Outpatient (POV) | payer BC, SELFPAY | PROVIDERS: Visit Provider Dermatology | DX: Z00.00 Encounter for general adult medical examination without abnormal findings (principal) ==

== ENCOUNTER → 2021-03-14 09:47 | Outpatient (CLI) | payer BC, SELFPAY ==
--- NOTE | 2021-03-14 09:50 | MM_ITS ---
PROCEDURE INFORMATION: Exam: MG Screening 3D Mammography Exam date and time: 03/14/2021 9:50 AM Age: 50 years old Clinical indication: Encounter for screening mammogram for malignant neoplasm of breast TECHNIQUE: Imaging protocol: Screening tomosynthesis and 2D mammography including computer-aided detection (CAD) when performed. COMPARISON: 1. MG DXBI MM Dig mamm BI DX w/CAD 07/21/2018 1:16 PM 2. MG SCBI MM Dig screening mamm BI w/CAD 06/21/2018 9:07 AM 3. MG DMDXUR DIG MAMM-DX UNI-RT 04/16/2015 2:30 PM FINDINGS: MAMMOGRAPHY: Breast composition: There are scattered areas of fibroglandular density. Mass: No new suspicious masses. Architectural distortion: No suspicious distortion. Calcifications: No suspicious calcifications. Asymmetric density: None. Skin thickening: None. Axillary adenopathy: None. IMPRESSION: No mammographic evidence of malignancy. Annual screening is recommended unless otherwise clinically indicated. ASSESSMENT: BI-RADS Category 1: Negative
== END ==
PROVIDERS: PCP Internal Medicine; Visit Provider Internal Medicine
DX: Z12.31 Encounter for screening mammogram for malignant neoplasm of breast (principal)
CPT/HCPCS: 77063; 77067

== ENCOUNTER → 2021-07-07 09:16 | Outpatient (CLI) | payer BC, SELFPAY | PROVIDERS: Visit Provider Surgery | DX: Z01.812 Encounter for preprocedural laboratory examination (principal); Z11.52 Encounter for screening for COVID-19; Z12.11 Encounter for screening for malignant neoplasm of colon | CPT/HCPCS: C9803; U0003; U0005 ==

== ENCOUNTER 2021-07-09 09:17 | Day surgery (SDC) | payer BC, SELFPAY ==
[2021-07-03 14:30] VITALS: BMI 31.7
--- NOTE | 2021-07-09 07:05 | HMH.GSHP ---
HPI HPI: Patient presents for routine follow-up colonoscopy. 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 She had 2 out of 15 positive lymph nodes on initial resection with generous margins. She is followed by Dr. Je ePdersen in [place] for oncology. She did have a right subclavian port placed by Dr. Marck Begum. She completed her chemotherapy. Last colonoscopy was performed on 06/04/2020. Anastomosis was encountered at approximately 50 cm. Biopsies were obtained. Biopsies were obtained at the rectosigmoid region as well. There was hyperplastic polyp. I had recommended a 1 year follow-up colonoscopy due to her history. She has been undergoing interval imaging in [place]. She underwent recent CEA level which was shown to have increased. This prompted a PET CT scan which reportedly revealed retroperitoneal adenopathy. She had CT-guided biopsy performed which revealed findings consistent with metastatic disease consistent with colon primary. She has restarted chemotherapy. Plan is for surgery at [facility] with intraperitoneal chemotherapy bath . I was asked to proceed with colonoscopy prior to surgical intervention. [facility] History I have reviewed the patient's past medical history: Yes Medical History: Reports:: Cancer (thyroid, cancer, metastatic lymphnodes in abdomen), Deep Vein Thrombosis, Hypertension, Migraine, Valvular Heart Disease Denies:: Diabetes Mellitus Type 1, Diabetes Mellitus Type 2, Internal Pacemaker, MRSA, Seizures *Have you ever received a pneumonia vaccine?: Yes *Have you received a flu vaccine this season?: Yes Other Medical History: Reports: Arthritis, Hypothyroidism, Sinus Problems. Denies: Blood Transfusion Reaction Laterality Cases: Right: Breast Biopsy, Bilateral: Tonsillectomy, Other Other Surgeries: Yes: Bariatric Surgery, Cancer Surgery, Cholecystectomy, Colonoscopy, Colon Resection, , EGD, Hysterectomy-Total, Skin Cancer Excision, Thyroidectomy, Other. No: Pacemaker Amputation: No Fractures: No - *Social History Last grade of school completed: Advanced degree Smoking Status: Never smoker Alcohol Intake: never Substance Use Type: denies use *Occupational Status:: employed Housing: house Household Members: family *Travel in the last 8 weeks: None Family Hx:: Cancer, Coronary Artery Disease Review of Systems - Review of Systems Review of systems:: pertinent systems reviewed and negative unless documented below Meds Home Medications Medication Instructions Recorded Confirmed Type levothyroxine 175 mcg tablet 175 mcg PO DAILY 08/27/17 05/05/21 History paroxetine HCl 10 mg tablet 10 mg PO DAILY 03/16/19 05/05/21 History magnesium oxide 250 mg PO BID 12/04/19 05/05/21 History gabapentin 300 mg capsule 300 mg PO DAILY 03/22/20 05/05/21 History B-complex with vitamin C 1 tab PO DAILY 09/03/20 05/05/21 History apixaban 5 mg tablet 2.5 mg PO BID tab 09/03/20 05/05/21 History ferrous sulfate 140 mg (45 mg 140 mg PO DAILY 09/03/20 05/05/21 History iron) tablet,extended release potassium gluconate 595 mg (99 mg) 595 mg PO DAILY 09/03/20 05/05/21 History tablet Doxycycline Hyclate 100 mg PO BID 07/09/21 07/09/21 History Miscellaneous [Nursing Instruction] 2.5 mg PO QID 07/09/21 07/09/21 History Zolpidem Tartrate 10 mg PO HS 07/09/21 07/09/21 History dexAMETHasone [Dexamethasone] 4 mg PO DAILY 07/09/21 07/09/21 History Allergies Allergy/AdvReac Type Severity Reaction Status Date / Time hydromorphone [From Dilaudid] Allergy Unknown Verified 07/09/21 09:47 Exam - Constitutional no acute distress - *Routine HEENT Exam Head: Present: normocephalic Eye: Present: EOMI, PERRL ENT: Present: mucous membranes moist - *Routine Neck Exam Present: supple. Absent: lymphadenopathy - *Routine Respiratory Exam Present: C
[2021-07-09 09:36] VITALS: BP 136/87; PULSE 90; RESP 18; TEMP 36.8; O2SAT 100
[2021-07-09 10:12] VITALS: O2SAT 97
[2021-07-09 10:32] VITALS: BP 82/42; PULSE 67; RESP 16; TEMP 36.1; O2SAT 96
--- NOTE | 2021-07-09 10:33 | HMH.SCOPE ---
- Procedure: Date: 07/09/21 Patient Date of :: 1970 Procedure Performed:: Total colonoscopy to terminal ileum with biopsy of anastomosis Indications:: Patient presents for colonoscopy. 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 She had 2 out of 15 positive lymph nodes on initial resection with generous margins. She is followed by Dr. Je Pedersen in [place] for oncology. She did have a right subclavian port placed by Dr. Marck Begum. She completed her initial chemotherapy. Last colonoscopy was performed on 06/04/2020. Anastomosis was encountered at approximately 50 cm. Biopsies were obtained. Biopsies were obtained at the rectosigmoid region as well. There was hyperplastic polyp. I had recommended a 1 year follow-up colonoscopy due to her history. She has been undergoing interval imaging in [place]. She underwent recent CEA level which was shown to have increased. This prompted a PET CT scan which reportedly revealed retroperitoneal adenopathy. She had CT-guided biopsy performed which revealed findings consistent with metastatic disease consistent with colon primary. She has restarted chemotherapy. Plan is for surgery at [facility] with intraperitoneal chemotherapy bath . I was asked to proceed with colonoscopy prior to surgical intervention. Performing Provider:: Dilan Canela MD Referring Provider:: MD Je Gallardo MD Sedation:: MAC sedation Procedure:: Patient was taken to endoscopy procedure room. Positioned in lateral decubitus position. Adequate intravenous sedation was achieved with anesthesia titration of propofol. Variable stiffness Olympus colonoscope was inserted via the anus. Was advanced to the cecum. Colonic preparation was good and visualization was good. Ileocecal valve and appendiceal orifice were clearly identified. Colonoscope was advanced a short distance into the terminal ileum which was grossly normal. Colonoscope was slowly withdrawn through the colon with careful surveillance. At approximately 50 cm from the anal verge anastomosis was identified. No evidence of any local recurrence. Biopsy was obtained. Colonoscope was withdrawn to the rectum. Retroflexion revealed no evidence of any pathologic internal hemorrhoids. Colonoscope was withdrawn. Findings:: No evidence of any recurrence or colonic mass Recommendations:: No intraluminal evidence of recurrence Complications:: None immediately apparent Estimated blood obtained (mL): 2
[2021-07-09 10:42] VITALS: BP 109/78; PULSE 75; RESP 18; TEMP 36.1; O2SAT 100
[2021-07-09 10:52] VITALS: BP 110/78; PULSE 66; RESP 18; TEMP 36.1; O2SAT 98
[2021-07-09 11:05] VITALS: BP 116/82; PULSE 69; RESP 18; TEMP 36.1; O2SAT 97
--- NOTE | 2021-07-09 11:49 | SUR.PHASEII ---
NS flush and Heparin was provided by patient in port kit
--- NOTE | 2021-07-09 14:05 | HMH.ANESCL ---
[facility] Anesthesia Checklist - Patient Identification Patient Identification: Arm Band, Verbal (Name & ) - Structural Data Admitted From: Home Planned Operative Procedure/s: Colonoscopy Consent for Planned Operative Procedure(s) Verified: Yes Verified Documents: Surgical Consent - NPO Status Verified Time NPO: 00:00 - Additional verifications Anesthesia Reactions: No Hx Blood Transfusions: No Blood Transfusion Reaction: No - Cardiovascular Assessment Heart Sounds: S1 & S2 - Airway Assessment C-Spine Mobility Assessed: Yes TMJ Mobility Assessed: Yes Dentition: Good Dentition - Neurological Assessment Level of Consciousness: Awake, Alert, Appropriate - Anesthesia Plan ASA Class: III Anesthesia Type: General [facility] History Medical History: Reports:: Cancer, Deep Vein Thrombosis, Hypertension, Migraine, Valvular Heart Disease Denies:: Diabetes Mellitus Type 1, Diabetes Mellitus Type 2, Internal Pacemaker, MRSA, Seizures *Have you ever received a pneumonia vaccine?: No *Have you received a flu vaccine this season?: Yes Other Medical History: Reports: Arthritis, Hypothyroidism, Sinus Problems. Denies: Blood Transfusion Reaction Anesthesia experience/problems:: none Laterality Cases: Right: Breast Biopsy, Bilateral: Tonsillectomy, Other Other Surgeries: Yes: Bariatric Surgery, Cancer Surgery, Cholecystectomy, Colonoscopy, Colon Resection, , EGD, Hysterectomy-Total, Skin Cancer Excision, Thyroidectomy, Other. No: Pacemaker Amputation: No Fractures: No - *Social History Last grade of school completed: Advanced degree Smoking Status: Never smoker Alcohol Intake: never Substance Use Type: denies use *Occupational Status:: other, employed Housing: house Household Members: spouse *Travel in the last 8 weeks: None Family Hx:: Cancer, Diabetes, Heart Attack, Hypertension, Thyroid Disorder
== END 2021-07-09 11:05 | disposition home or self-care (01) ==
LOC: OUTP 09:21
PROVIDERS: PCP Internal Medicine; Visit Provider Surgery
PROC: 0DJD8ZZ Inspection of Lower Intestinal Tract, Via Natural or Artificial Opening Endoscopic (ICD-10-PCS; CPT 45380; principal; 2021-07-09 10:30)
DX: Z12.11 Encounter for screening for malignant neoplasm of colon (principal); Z85.030 Personal history of malignant carcinoid tumor of large intestine; Z90.49 Acquired absence of other specified parts of digestive tract; Z86.718 Personal history of other venous thrombosis and embolism; I10 Essential (primary) hypertension; G43.909 Migraine, unspecified, not intractable, without status migrainosus; M19.90 Unspecified osteoarthritis, unspecified site; E03.9 Hypothyroidism, unspecified; Z80.9 Family history of malignant neoplasm, unspecified; Z83.3 Family history of diabetes mellitus; Z82.3 Family history of stroke; Z82.49 Family history of ischemic heart disease and other diseases of the circulatory system; Z83.49 Family history of other endocrine, nutritional and metabolic diseases
CPT/HCPCS: 45380

== ENCOUNTER → 2021-07-28 09:22 | Outpatient (CLI) | payer BC, SELFPAY | PROVIDERS: Visit Provider Internal Medicine | DX: Z20.822 Contact with and (suspected) exposure to COVID-19 (principal) | CPT/HCPCS: C9803; U0003; U0005 ==

== ENCOUNTER → 2021-10-01 12:02 | Outpatient (CLI) | payer BC, SELFPAY | PROVIDERS: PCP Internal Medicine; Visit Provider Student in an Organized Health Care Education/Training Program | DX: Z01.812 Encounter for preprocedural laboratory examination (principal); Z11.52 Encounter for screening for COVID-19 | CPT/HCPCS: C9803; U0003; U0005 ==

== ENCOUNTER → 2021-10-24 14:39 | Outpatient (CLI) | payer BC, SELFPAY | PROVIDERS: PCP Internal Medicine; Visit Provider Nurse Practitioner Family | DX: Z01.812 Encounter for preprocedural laboratory examination (principal); Z11.52 Encounter for screening for COVID-19 | CPT/HCPCS: C9803; U0003; U0005 ==

== ENCOUNTER → 2022-02-06 15:01 | Outpatient (CLI) | payer BC, SELFPAY | PROVIDERS: PCP Internal Medicine; Visit Provider Internal Medicine | DX: S90.412D Abrasion, left great toe, subsequent encounter (principal); L08.9 Local infection of the skin and subcutaneous tissue, unspecified; B95.7 Other staphylococcus as the cause of diseases classified elsewhere | CPT/HCPCS: 87070; 87077; 87186; 87205 ==

== ENCOUNTER → 2022-06-22 10:38 | Outpatient (CLI) | payer BC, SELFPAY ==
--- NOTE | 2022-06-22 10:43 | CA_ITS ---
FINAL REPORT TECHNIQUE: Color Doppler, duplex Doppler and compression sonography of the left lower extremity deep venous systems was performed. CLINICAL HISTORY: .Lt groin pain x i week. Stage 4 colon cancer, on eliquis for previous portal thrombosis. FINDINGS: There is no evidence of deep venous thrombosis from the level of the groin to the calf. The veins are patent and compressible. IMPRESSION: No evidence of deep venous thrombosis left lower extremity. Reviewed, Interpreted and Dictated by Dilan Christianson III, MD Transcribed by Gina Fish Authenticated and [facility]
== END ==
PROVIDERS: PCP Internal Medicine; Visit Provider Internal Medicine
DX: M79.605 Pain in left leg (principal)
CPT/HCPCS: 93971